=== PATIENT | male | born 1990 | race Caucasian/White ===

== ENCOUNTER 2018-06-04 19:19 | Emergency (ER) | payer OTHER ==
[2018-06-04 19:37] VITALS: BP 139/93
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
== END 2018-06-04 21:30 | disposition home or self-care (01) ==
LOC: UCEAST 19:19
DX: M79.671 Pain in right foot (principal); M21.70 Unequal limb length (acquired), unspecified site; V49.49XA Driver injured in collision with other motor vehicles in traffic accident, initial encounter; Y92.9 Unspecified place or not applicable
CPT/HCPCS: 73523; 99202; G0463